=== PATIENT | female | born 1995 | race Caucasian/White ===

== ENCOUNTER 2016-12-01 18:08 | Emergency (ER) | payer BC ==
[~2016-12-01] VITALS: Ht 180.3 cm; Wt 104.5 kg
[~2016-12-01 18:08] MED LIST: PROAIR HFA0.09 MG/AC IH; SINGULAIR 110 MG/TAB PO; SPRINTEC 35 MCG1 TAB PO; ZITHROMAX 250M250 MG PO; ZYRTEC 10MG10 MG PO
[2016-12-01 18:12] VITALS: BP 143/77; TEMP 98.8
[2016-12-01] MEDS ORDERED: PROZAC40 MG PO (18:16)
[2016-12-01 19:00] LABS: BASO % 0.5 % (0.0-2.0); EOS # 0.3 (0.0-0.7); EOS % 3.4 % (0-4.0); GRAN % 61.4 % (42.2-75.2); HEMATOCRIT 43.8 % (37.0-47.0); HEMOGLOBIN 14.6 g/dl (12.5-16.0); LYMPH # 2.3 (1.2-3.4); LYMPH % 28.3 % (20.0-51.0); MEAN CELL VOLUME 86 fl (80.0-100.0); MEAN CORPUSCULAR HEMOGLOBIN 29 pg (27.0-31.0); MEAN CORPUSCULAR HGB CONC 33 g/dl (33.0-37.0); MEAN PLATELET VOLUME 10.4 fl (7.4-10.4); MONO # 0.5 (0.1-0.6); MONO % 6.2 % (1.7-9.3); PLATELET COUNT 254 K/mm3 (130-400); REDCELL DISTRIBUTION WIDTH-CV 13.2 % (11.5-14.5); WHITE BLOOD COUNT 8.2 K/mm3 (4.8-10.8)
[2016-12-01 19:03] LABS: PH 7 (5-8); URINE APPEARANCE Hazy; URINE BACTERIA Rare /hpf; URINE BILIRUBIN Negative (NEGATIVE); URINE BLOOD Negative (NEGATIVE); URINE COLOR Yellow; URINE GLUCOSE Negative (NEGATIVE); URINE KETONE Negative (NEGATIVE); URINE UROBILINOGEN Negative (NEGATIVE); URINE WBC 0-2 /hpf
[2016-12-01 19:28] LABS: ADJUSTED CALCIUM 9.3 mg/dL (8.4-10.2); ALBUMIN 4.3 gm/dL (3.5-5.0); BILIRUBIN,TOTAL 0.6 mg/dL (0.0-1.0); CALCIUM 9.5 mg/dL (8.4-10.2); CREATININE, serum 0.88 mg/dL (0.52-1.25); POTASSIUM 3.8 mmol/L (3.4-5.0); TOTAL PROTEIN 8.1 gm/dL (6.4-8.2)
[2016-12-01] MEDS ORDERED: ZOFRAN ODT4 MG PO (20:16)
[2016-12-01 20:31] VITALS: PULSE 57
== END 2016-12-01 20:32 | disposition home or self-care (01) ==
LOC: COL.ER 18:08
PROVIDERS: Physician Assistant
DX: K29.70 Gastritis, unspecified, without bleeding (principal)
CPT/HCPCS: J2405; J2550; J7030

== ENCOUNTER → 2016-12-13 | Outpatient (CLI) | payer BC ==
[~2016-12-13] MED LIST changes: +CARAFATE 1GM1 G PO; +LAMICTAL 25MG T25 MG PO; +PHENERGAN 25 TA25 MG PO; +PRIL40 PO; +PROZAC40 MG PO; +ZOFRAN ODT4 MG PO
== END ==
LOC: BHSO 13:43
DX: F41.1 Generalized anxiety disorder (principal)
CPT/HCPCS: 90791-AI

== ENCOUNTER 2016-12-19 13:28 | Emergency (ER) | payer BC, OTHER ==
[~2016-12-19] VITALS: Ht 180.3 cm; Wt 101.4 kg
[~2016-12-19 13:28] MED LIST changes: -CARAFATE 1GM1 G PO; -LAMICTAL 25MG T25 MG PO; -PHENERGAN 25 TA25 MG PO; -PRIL40 PO
[2016-12-19 13:30] VITALS: TEMP 98.6
[2016-12-19] MEDS ORDERED: CARAFATE 1GM1 G PO (13:33)
[2016-12-19] MEDS ORDERED: LAMICTAL 25MG T25 MG PO (13:33)
[2016-12-19] MEDS ORDERED: PRIL40 PO (13:33)
[2016-12-19 15:01] LABS: BASO # 0.1 (0.0-0.2); BASO % 0.6 % (0.0-2.0); EOS # 1.7 (0.0-0.7); EOS % 14.5 % (0-4.0); GRAN # 6.9 (1.4-6.5); GRAN % 59.6 % (42.2-75.2); HEMATOCRIT 45.6 % (37.0-47.0); HEMOGLOBIN 15.4 g/dl (12.5-16.0); LYMPH # 2.3 (1.2-3.4); LYMPH % 19.9 % (20.0-51.0); MEAN CELL VOLUME 84 fl (80.0-100.0); MEAN CORPUSCULAR HEMOGLOBIN 29 pg (27.0-31.0); MEAN CORPUSCULAR HGB CONC 34 g/dl (33.0-37.0); MEAN PLATELET VOLUME 10.4 fl (7.4-10.4); MONO # 0.6 (0.1-0.6); MONO % 5.1 % (1.7-9.3); PLATELET COUNT 300 K/mm3 (130-400); RED BLOOD COUNT 5.41 M/mm3 (4.10-5.30); REDCELL DISTRIBUTION WIDTH-CV 12.8 % (11.5-14.5); WHITE BLOOD COUNT 11.5 K/mm3 (4.8-10.8)
[2016-12-19 15:17] LABS: ADJUSTED CALCIUM 9.7 mg/dL (8.4-10.2); ALBUMIN 4.3 gm/dL (3.5-5.0); BILIRUBIN,TOTAL 0.6 mg/dL (0.0-1.0); CALCIUM 9.9 mg/dL (8.4-10.2); CREATININE, serum 0.97 mg/dL (0.52-1.25); TOTAL PROTEIN 8.1 gm/dL (6.4-8.2)
[2016-12-19] MEDS ORDERED: PHENERGAN 25 TA25 MG PO (17:13)
[2016-12-19 17:26] VITALS: BP 132/78; PULSE 74
== END 2016-12-19 17:32 | disposition home or self-care (01) ==
LOC: COL.ER 13:28
PROVIDERS: Physician Assistant
DX: R10.32 Left lower quadrant pain (principal); R10.13 Epigastric pain; R11.10 Vomiting, unspecified; R19.7 Diarrhea, unspecified
CPT/HCPCS: J2270; J2550; J7040; Q9967

== ENCOUNTER → 2017-02-10 | Outpatient (CLI) | payer BC, OTHER ==
[~2017-02-10] MED LIST changes: +CARAFATE 1GM1 G PO; +LAMICTAL 25MG T25 MG PO; +PHENERGAN 25 TA25 MG PO; +PRIL40 PO
== END ==
LOC: BHSO 15:57
DX: F41.1 Generalized anxiety disorder (principal)

== ENCOUNTER → 2019-12-22 | Outpatient (CLI) | payer BC ==
[~2019-12-22] MED LIST changes: +ALINIA100 MG/5 M PO
== END ==
LOC: ZCOL.LAB 19:37
DX: R19.7 Diarrhea, unspecified (principal)

== ENCOUNTER 2019-12-23 11:33 | Emergency (ER) | payer BC ==
[~2019-12-23] VITALS: Ht 180.3 cm; Wt 117.3 kg
[~2019-12-23 11:33] MED LIST changes: -ALINIA100 MG/5 M PO
[2019-12-23 11:56] VITALS: TEMP 97.2
[2019-12-23 15:04] LABS: BASO % 0.5 % (0.0-2.0); GRAN # 2.7 (1.4-6.5); GRAN % 72.1 % (42.2-75.2); HEMOGLOBIN 15.5 g/dl (12.5-16.0); LYMPH # 0.8 (1.2-3.4); LYMPH % 20.5 % (20.0-51.0); MEAN CELL VOLUME 80 fl (80.0-100.0); MEAN CORPUSCULAR HEMOGLOBIN 25 pg (27.0-31.0); MEAN CORPUSCULAR HGB CONC 32 g/dl (33.0-37.0); MEAN PLATELET VOLUME 10.3 fl (7.4-10.4); MONO # 0.2 (0.1-0.6); MONO % 6.4 % (1.7-9.3); PLATELET COUNT 271 K/mm3 (130-400); RED BLOOD COUNT 6.11 M/mm3 (4.10-5.30); REDCELL DISTRIBUTION WIDTH-CV 13.6 % (11.5-14.5)
[2019-12-23 15:19] LABS: ALBUMIN 4.8 gm/dL (3.5-5.0); BILIRUBIN,TOTAL 0.6 mg/dL (0.0-1.0); CALCIUM 9.8 mg/dL (8.4-10.2); CREATININE, serum 0.96 (0.52-1.25); POTASSIUM 3.8 mmol/L (3.4-5.0); TOTAL PROTEIN 8.6 gm/dL (6.4-8.2)
[2019-12-23] MEDS ORDERED: ALINIA100 MG/5 M PO (16:05)
[2019-12-23] MEDS ORDERED: PHENERGAN 25 TA25 MG PO (16:07)
[2019-12-23 16:25] VITALS: BP 112/72; PULSE 89
== END 2019-12-23 16:24 | disposition home or self-care (01) ==
LOC: COL.ER 11:33
PROVIDERS: Emergency Medicine
DX: A07.2 Cryptosporidiosis (principal)